=== PATIENT | male | born 1980 | race Caucasian/White ===

== ENCOUNTER → 2017-12-13 | Outpatient (CLI) | payer BC ==
--- NOTE | 2017-12-13 10:27 | Diagnostic Imaging Report ---
INDICATION: Testicular pain. The right testicle measures 4.1 x 3.1 x 3.6 cm and the left testicle measures 3.4 x 3.0 x 3.5 cm. Both testes demonstrate a homogeneous echotexture. No discrete mass is seen. There is blood flow to both testes. No significant hydrocele is seen. Epididymides are unremarkable. IMPRESSION: Unremarkable scrotal ultrasound. There is no evidence of testicular mass or vascular compromise. Dictated by: Dictated on workstation # [id number]
== END ==
LOC: RAD 08:44
PROVIDERS: ATTEND Nurse Practitioner Family
DX: N50.811 Right testicular pain (principal); N50.812 Left testicular pain
CPT/HCPCS: 76870

== ENCOUNTER → 2019-06-29 | Outpatient (CLI) | payer OTHER | LOC: CARD 12:57 | PROVIDERS: ATTEND Nurse Practitioner Family | DX: R00.2 Palpitations (principal) | CPT/HCPCS: 36415; 84484; 93005 ==

== ENCOUNTER 2019-07-11 04:59 | Emergency (ER) | payer OTHER ==
[~2019-07-11] VITALS: Ht 190.5 cm; Wt 137.5 kg
--- NOTE | 2019-07-11 05:33 | ED Trauma-Multisystem ---
General Stated Complaint: FALL,LOWER BACK PAIN Activation Level: Level 1 Source of Information: Patient, EMS Exam Limitations: Intoxication History of Present Illness Date Seen by Provider: Jul 11, 2019 Time Seen by Provider: 05:01 Initial Comments PT ARRIVES VIA EMS + CERVICAL COLLAR AND BACK BOARD IN PLACE PT IS INTOXICATED--STATES HE HAS HAD "4 DRINKS" TONIGHT, AND "1 XANAX" PT FELL OVER THE RAILING OF A [place], AND FELL 20 FEET. THIS WAS NOT WITNESSED, AND IS UNKNOWN HOW LONG PT HAS LAID ON THE GROUND OUTSIDE, BUT IS VERY COLD OUTSIDE--32 DEGREES, MINUS [place] AND IS VERY WET OUTSIDE. PT WEARING SOCKS, A VERY THIN "LEGGING" FOR PANTS, AND A VERY THIN, PERFORATED, SLEEVELESS SHIRT --CLOTHING IS VERY WET PT DENIES LOSS OF CONSCIOUSNESS, BUT AGAIN WAS NOT WITNESSED BY ANYONE C/O SEVERE PAIN TO LOW BACK AND RIGHT BUTTOCK/POSTERIOR HIP AREA. STATES HIS "WHOLE RIGHT LEG IS NUMB" BUT PT IS ABLE TO MOVE HIS RIGHT LEG. DENIES NECK PAIN DENIES HEADACHE DENIES DIZZINESS DENIES VISION CHANGES DENIES NAUSEA/VOMITING DENIES CHEST OR ABDOMINAL PAIN LEVEL 1 TRAUMA ACTIVATION DONE JUST PRIOR TO PT'S ARRIVAL 05--DIANE CONTACTED BY [employer] AND INFORMED OF LEVEL 1 TRAUMA ACTIVATION 0524--DR. NG CONTACTED BY [employer], AND INFORMED OF LEVEL 1 TRAUMA ACTIVATION . PCP: DR. GAUTAM Allergies and Home Medications Allergies Coded Allergies: No Known Drug Allergies (Unverified , 07/11/19) Patient Home Medication List Home Medication List Reviewed: Yes Review of Systems Review of Systems Constitutional: no symptoms reported; No dizziness Eyes: No Symptoms Reported; Denies Blurred Vision Ears: No Symptoms Reported Nose: No Symptoms Reported Mouth: No Symptoms Reported Throat: No Symptoms to Report Respiratory: no symptoms reported; No short of breath Cardiovascular: No Symptoms Reported; Denies Chest Pain Gastrointestinal: no symptoms reported; No abdominal pain, No nausea, No vomiting Genitourinary: no symptoms reported Musculoskeletal: see HPI, back pain Skin: no symptoms reported Psychiatric/Neurological: See HPI, Numbness, Tingling Past Hniyxxi-Daqhjc-Dkgxgo Hx Patient Social History Alcohol Use: Regular Use ("10 DRINKS A WEEK" ) Recreational Drug Use: Yes (THC) Drug of Choice: THC Smoking Status: Current Everyday Smoker (1 PPD) Type Used: Cigarettes (1 PPD) Recent Foreign Travel: No Contact w/Someone Who Travel: No Past Medical History Surgeries: Yes Vasectomy Respiratory: No Cardiac: Yes Hypertension Neurological: No Genitourinary: No Gastrointestinal: No Musculoskeletal: No Endocrine: Yes (MORBID OBESITY) HEENT: No Cancer: No Psychosocial: Yes Depression Physical Exam Height, Weight, BMI Height: '" Weight: lbs. oz. kg; BMI Method: General Appearance: No Apparent Distress, Obese (MORBIDLY OBESE), Other (REEKS OF ETOH--CAN SMELL THE ALCOHOL FROM OUTSIDE THE DOORWAY. SPEECH IS SLURRED) Head: No Evidence of Injury Eyes: Bilateral Eye Normal Inspection, Bilateral Eye PERRL, Bilateral Eye EOMI Ears, Nose, Throat: Hearing Grossly Normal, No Evidence of ENT Injury, No Dental Injury; No Clear Fluid (Ears), No Clear Fluid (Nose), No Hemotympanum, No Midface Instability, No Dental Injury Neck: Other (IN CERVICAL COLLAR) Cardiovascular: Regular Rate, Rhythm, No Edema, No JVD, No Murmur, Normal Peripheral Pulses Respiratory: Chest Non Tender, Normal Breath Sounds, No Accessory Muscle Use, No Respiratory Distress Gastrointestinal: Non Tender, Soft Rectal: Normal Rectal Tone Genital/Rectal: Other (NORMAL EXTERNAL GENITALIA. NO EXTERNAL EVIDENCE OF TRAUMA TO AREA. NO BLOOD AT MEATUS. ) Back: No CVA Tenderness, Vertebral Tenderness, Other (DIFFUSE LOWER LUMBAR TENDERNESS, RIGHT POSTERIOR ILIAC CREST, RIGHT BUTTOCK AND RIGHT HIP TENDERNESS. ) Extremity: Normal Range of Motion, Non Tender, No Calf Tenderness, No Pedal Edema, Slow Capillary Refill (VERY SLOW, FEET AND HANDS ARE EXTREMELY COLD. ), Other (NO EVIDENCE OF VICENTE BITE AT THIS TIME. ) Neurologic/Psychiatric: Alert, Oriented x3, No Motor/Sensory Deficits, regional production manager II- XII Norm as Tested, Other (PT DOES HAVE SENSATION TO BOTH FEET AND DISTAL MOTOR IS INTACT. ) Skin: Normal Color, Other (EXTREMELY COLD) [place] Coma Score Best Eye Response (Beny): (4) Open Spontaneously Best Verbal Response (Beny): (5) Oriented Best Motor Response ([place]iley [place]): (6) Obeys Commands Wiley [place] Total: 15 Focused Exam Lactate Level 07/11/19 05:12: Lactic Acid Level 3.49*H 07/11/19 07:13: Lactic Acid Level 3.01*H Lactic Acid Level Laboratory Tests Test 07/11/19 05:12 07/11/19 07:13 Lactic Acid Level 3.49 MMOL/L (0.50-2.00) *H 3.01 MMOL/L (0.50-2.00) *H Progress/Results/Core Measures Results/Orders Lab Results Laboratory Tests Test 07/11/19 05:12 07/11/19 07:13 Range/Units White Blood Count 24.2 H 4.3-11.0 10^3/uL Red Blood Count 4.64 4.35-5.85 10^6/uL Hemoglobin 13.2 L 13.3-17.7 G/DL Hematocrit 41 40-54 % Mean Corpuscular Volume 87 80-99 FL Mean Corpuscular Hemoglobin 28 25-34 PG Mean Corpuscular Hemoglobin Concent 33 32-36 G/DL Red Cell Distribution Width 13.6 10.0-14.5 % Platelet Count 288 130-400 10^3/uL Mean Platelet Volume 10.0 7.4-10.4 FL Prothrombin Time 13.4 12.2-14.7 SEC INR Comment 1.0 0.8-1.4 Activated Partial Thromboplast Time 25 24-35 SEC Fibrinogen 463 221-496 MG/DL D-Dimer 1.16 H 0.00-0.49 UG/ML Sodium Level 139 135-145 MMOL/L Potassium Level 4.3 3.6-5.0 MMOL/L Chloride Level 102 98-107 MMOL/L Carbon Dioxide Level 19 L 21-32 MMOL/L Anion Gap 18 H 5-14 MMOL/L Blood Urea Nitrogen 21 H 7-18 MG/DL Creatinine 1.52 H 0.60-1.30 MG/DL Estimat Glomerular Filtration Rate 51 BUN/Creatinine Ratio 14 Glucose Level 169 H 70-105 MG/DL Lactic Acid Level 3.49 *H 3.01 *H 0.50-2.00 MMOL/L Calcium Level 9.2 8.5-10.1 MG/DL Phosphorus Level 3.4 2.3-4.7 MG/DL Magnesium Level 1.9 1.6-2.4 MG/DL Total Bilirubin 0.2 0.1-1.0 MG/DL Direct Bilirubin 0.1 0.0-0.3 MG/DL Indirect Bilirubin 0.1 MG/DL Aspartate Amino Transf (AST/SGOT) 85 H 5-34 U/L Alanine Aminotransferase (ALT/SGPT) 93 H 0-55 U/L Alkaline Phosphatase 69 40-136 U/L Total Creatine Kinase 716 H 30-200 U/L Total Protein 7.3 6.4-8.2 GM/DL Albumin 4.7 H 3.2-4.5 GM/DL Serum Alcohol 232 H <10 MG/DL My Orders Orders - MARTITA PALOMO DO Ct Head/Face/Cervical Wo (07/11/19 ) Ct Thoracic/Lumbar Spine Wo (07/11/19 ) Ct Chest/Abdomen/Pelvis W (07/11/19 ) Chest 1 View, Ap/Pa Only (07/11/19 ) Pelvis (07/11/19 ) Cbc No Diff (07/11/19 05:31) Fibrin Degradation Products (07/11/19 05:31) Fibrinogen (07/11/19 05:31) Protime With Inr (07/11/19 05:31) Partial Thromboplastin Time (07/11/19 05:31) Drug Screen Stat (Urine) (07/11/19 05:31) Urinalysis (07/11/19 05:31) Alcohol (07/11/19 05:31) Basic Metabolic Panel (07/11/19 05:31) Creatine Kinase (07/11/19 05:31) Liver Panel (07/11/19 05:31) Magnesium (07/11/19 05:31) Phosphorus (07/11/19 05:31) Lactic Acid Analyzer (07/11/19 05:31) Red Cells Leukocytes Reduced (07/11/19 05:31) Type And Screen (07/11/19 05:31) Fentanyl Injection (Sublimaze Injection (07/11/19 06:16) Iohexol Injection (Omnipaque 350 Mg/Ml 1 (07/11/19 06:30) Received Contrast (Hold Metformin- Contr (07/11/19 06:30) Ns (Ivpb) (Sodium Chloride 0.9% Ivpb Bag (07/11/19 06:30) Ns Iv 1000 Ml (Sodium Chloride 0.9%) (07/11/19 06:27) Lactated Ringers (Lr 1000 Ml Iv Solution (07/11/19 06:27) Fentanyl Injection (Sublimaze Injection (07/11/19 06:27) Fentanyl Injection (Sublimaze Injection (07/11/19 06:45) Fentanyl Injection (Sublimaze Injection (07/11/19 07:30) Fentanyl Injection (Sublimaze Injection (07/11/19 08:15) Ed Iv/Invasive Line Start (07/11/19 08:19) Ns Iv 1000 Ml (Sodium Chloride 0.9%) (07/11/19 08:19) Lactated Ringers (Lr 1000 Ml Iv Solution (07/11/19 08:19) Medications Given in ED Current Medications Medications Dose Ordered Sig/Ken Route Start Time Stop Time Status Last Admin Dose Admin Fentanyl Citrate 100 mcg ONCE PRN IVP 07/11/19 07:30 07/11/19 07:25 100 MCG Fentanyl Citrate 100 mcg ONCE PRN IVP 07/11/19 08:15 07/11/19 08:24 100 MCG Fentanyl Citrate 100 mcg STK-MED ONCE .ROUTE 07/11/19 06:16 07/11/19 06:18 DC 07/11/19 06:29 50 MCG Lactated Ringer's 1,000 ml @ 0 mls/hr Q0M ONCE IV 07/11/19 08:19 07/11/19 08:21 DC 07/11/19 08:24 0 MLS/HR Sodium Chloride 1,000 ml @ 0 mls/hr Q0M ONCE IV 07/11/19 08:19 07/11/19 08:21 DC 07/11/19 08:25 0 MLS/HR Progress Progress Note : Progress Note RECTAL TEMP ON ARRIVAL IS 34.5 C=94.1 F IMMEDIATELY REMOVED ALL WET CLOTHING, PLACED WARM BLANKETS AND MELANIE HUGGER ON PT, AND GIVEN WARM IV FLUIDS TEMP IS UP WITH THESE MEASURES,AND PT HAS GOOD CAPILLARY REFILL IN ALL EXTREMITIES AND ALL ARE WARM AND PINK, AND HAS GOOD SENSATION AND TO ALL EXTREMITIES. NO EVIDENCE OF FROSTBITE INJURY. PT PLACED IN PELVIC BINDER IMMEDIATELY ON VIEWING PELVIS XRAY--PT STATES PAIN IS MUCH IMPROVED WITH THIS MEASURE. PT STATES NUMBNESS AND TINGLING IN HIS RIGHT LEG IS MUCH LESS ALSO. DISTAL MOTOR/SENSORY/VASCULAR IS INTACT. NO DETERIORATION IN PT'S CONDITION DURING ER STAY VITALS REMAINED STABLE PAIN CONTROLLED Initial ECG Impression Date: Jul 11, 2019 Initial ECG Impression Time: 07:17 Initial ECG Rate: 81 Initial ECG Rhythm: Normal Sinus Initial ECG Impression: Normal Initial ECG Comparisson: No Previous ECG Available Diagnostic Imaging Comments CXR--NO ACUTE PROCESS, PENDING RADIOLOGIST REVIEW PELVIS XRAY--OPEN BOOK PELVIC FRACTURE, PENDING RADIOLOGIST REVIEW CT HEAD/MAXILLOFACIALS/CERVICAL SPINE--NO ACUTE PROCESS,PER [facility] VIA FAX AT 0635 CT THORACIC/LUMBAR SPINE--RIGHT TRANSVERSE PROCESS FRACTURES OF L1-L5, WITH MARKED DIASTASES OF RIGHT SI JOINT OF 17 MM--PER [facility] VIA FAX [place] 0630 CT CHEST/ABDOMEN/PELVIS---MILD CARDIOMEGALY WITHOUT SIGNIFICANT PERICARDIAL EFFUSION, NO ACUTE PULMONARY OR OSSEOUS INJURY OF CHEST; HEPATOMEGALY AND DIFFUSE HEPATIC STEATOSIS, NO EVIDENCE OF SOLID OR HOLLOW ORGAN INJURY OR MESENTERIC INJURY. RIGHT TRANSVERSE PROCESS FRACTURES OF L1-L5. MARKED DIASTASES OF RIGHT SI JOINT, WITH PUBIC DIASTASES OF 2.8 CM. EXTRAPERITONEAL HEMORRHAGE ON THE RIGHT, ADJACENT TO AND ANTERIOR TO RIGHT PSOAS MUSCLE AND ALONG THE COMMON AND EXTERNAL ILIAC VESSELS ON RIGHT. ANTERIOR BLADDER EXTENDS INTO THE DIASTASES DEFECT, WITH INTACT URINARY BLADDER. NO PNEUMOPERITONEUM. NO INTRAPERITONEAL BLOOD. PATCHY SUBCUTANEOUS SOFT TISSUE CONTUSIONS ANTERIOR ABDOMINAL WALL ON RIGHT--PER [facility] VIA FAX AT 0638 Reviewed: Reviewed by Me Critical Care Note Critical Care Start Time: 05:01 Stop Time: 06:30 Departure Communication (Admissions) 0625--[facility] NOT AVAILABLE FOR AIR TRANSPORT 0627--[facility] NOT AVAILABLE FOR AIR TRANSPORT 0630--[facility] NOT AVAILABLE FOR TRANSPORT 0623--CALLED IZABEL[facility]HONG ER PHYSICIAN 0629--SPOKE WITH DR. RAIN, ER PHYSICIAN, INJURIES ARE BEYOND THEIR CAPABILITY, ADVISES TRANSFER TO HIGHER LEVEL OF CARE. 0630--CALLED NOAH. IZABELA SAAVEDRA, TRAUMA SURGEON. 0647--[facility] CALLED BACK, THEY WILL AUTO-ACCEPT FOR DR. SAAVEDRA AT THIS TIME, AND WILL HAVE HER CALL BACK WHEN SHE IS AVAILABLE. PT HAS BEEN GIVEN A GHOST BED NUMBER [id number]--SPOKE WITH DR. SAAVEDRA, ACCEPTS PT FOR DIRECT ADMIT TO ICU. INFORMED HER OF OUR TRANSPORTATION ISSUES AND WILL CONTACT HER SOON TRANSPORT IS SECURED, AND GIVE ETA TO THEIR FACILITY. 0747--[facility] WILL BE HERE IN 45 MINUTES TO TRANSPORT PT 0837--[facility] HERE FOR TRANSPORT. Impression Primary Impression: Fall from, out of or through balcony, initial encounter Additional Impressions: FALL FROM 20 FEET OPEN BOOK PELVIC FRACTURE TRANSVERSE PROCESS FRACTURES RIGHT L1-L5 Hypothermia Alcohol intoxication Disposition: 02 XFER SHT-TRM HOSP Condition: Stable Transfer Transfer Reason: Exceeds level of care Transfer Facility: Method of Transfer: Air ([facility]) Departure-Patient Inst. Referrals: KELLY GAUTAM MD (PCP/Family) Primary Care Physician MARTITA PALOMO DO Jul 11, 2019 05:33 POS
[2019-07-11 05:37] LABS: HEMOGLOBIN 13.2 G/DL (13.3-17.7); RED CELL DISTRIBUTION WIDTH 13.6 % (10.0-14.5); WHITE BLOOD COUNT 24.2 10^3/uL (4.3-11.0)
[2019-07-11 05:54] LABS: ALBUMIN 4.7 GM/DL (3.2-4.5); BILIRUBIN,DIRECT 0.1 MG/DL (0.0-0.3); BILIRUBIN,INDIRECT 0.1 MG/DL; BILIRUBIN,TOTAL 0.2 MG/DL (0.1-1.0); CALCIUM 9.2 MG/DL (8.5-10.1); CREATININE SERUM 1.52 MG/DL (0.60-1.30); MAGNESIUM 1.9 MG/DL (1.6-2.4); PHOSPHORUS 3.4 MG/DL (2.3-4.7); POTASSIUM 4.3 MMOL/L (3.6-5.0); TOTAL PROTEIN 7.3 GM/DL (6.4-8.2)
[2019-07-11 06:09] LABS: FIBRIN DEGRADATION PRODUCTS 1.16 UG/ML (0.00-0.49); PROTHROMBIN TIME PATIENT 13.4 SEC (12.2-14.7)
[2019-07-11] MEDS ORDERED: fentaNYL INJECTION 100 MCG/2 ML AMP ONE (06:16)
[2019-07-11] MEDS ORDERED: fentaNYL INJECTION 100 MCG/2 ML AMP IVP STA (06:27)
[2019-07-11] MEDS ORDERED: LACTATED RINGERS 1,000 ML IV STA (06:27)
[2019-07-11] MEDS ORDERED: NS IV 1000 ML 1,000 ML IV STA (06:27)
[2019-07-11] MEDS ORDERED: HOLD METFORMIN - RECEIVED CONTRAST 20 ML VIAL IV SCH (06:30)
[2019-07-11] MEDS ORDERED: IOHEXOL 350 MG/ML 100 ML (OMNIPAQUE 350) VIAL IV ONE (06:30)
[2019-07-11] MEDS ORDERED: NS 100 ML (IVPB) BAG IV ONE (06:30)
--- NOTE | 2019-07-11 06:34 | Diagnostic Imaging Report ---
PROCEDURE: CT head, face, and cervical spine without contrast. TECHNIQUE: Multiple contiguous axial images were obtained through the head, neck, and facial bones without the use of intravenous contrast. Sagittal and coronal reformations through the cervical spine and facial bones were also performed. Auto Exposure Controls were utilized during the CT exam to meet ALARA standards for radiation dose reduction. Indication: Head and neck pain after fall. Comparison: None. Discussion: Head: No intracranial hemorrhage, mass, midline shift, or hydrocephalus. The ventricles and sulci are normal size and configuration for age. The visualized orbits, paranasal sinuses, mastoid air cells, and calvarium are unremarkable. No facial or nasal bone fracture identified. Facial soft tissues appear within normal limits. Cervical spine: Moderate degenerative disc disease noted diffusely throughout the cervical spine. Mild facet arthropathy. No fracture or subluxation. Alignment is anatomic. The adjacent soft tissues are unremarkable. Impression: 1. No acute abnormality identified within the head or neck. Dictated by: Dictated on workstation # [id number]
--- NOTE | 2019-07-11 06:44 | Diagnostic Imaging Report ---
PROCEDURE: CT thoracic and lumbar spine without contrast. TECHNIQUE: Multiple contiguous axial images were obtained through the thoracic and lumbar spine without the use of intravenous contrast. Sagittal and coronal reformations were then performed. Indication: Fall with mid to low back pain. Comparison: None. Discussion: The trachea appears markedly narrowed which is of uncertain etiology, recommend clinical correlation. There is no discrete mass or surrounding hematoma identified. The remainder of the adjacent soft tissues are unremarkable. There is marked widening of the right sacroiliac joint which is likely due to dislocation. There are nondisplaced fractures of the right L1, L2, L3, L4, and L5 transverse processes. No compression fracture identified. Overall alignment is anatomic. The intervertebral disc spaces are well-maintained. Impression: 1. Nondisplaced fractures of the L1-L5 right transverse processes. 2. Marked widening of the right sacroiliac joint. 3. Marked narrowing of the trachea which is of uncertain etiology or clinical significance. Dictated by: Dictated on workstation # [id number]
[2019-07-11] MEDS ORDERED: fentaNYL INJECTION 100 MCG/2 ML AMP IVP PRN ×3 (06:45→08:15)
--- NOTE | 2019-07-11 06:45 | Diagnostic Imaging Report ---
EXAMINATION: AP pelvis INDICATION: Fall. Back and pelvic pain. FINDINGS: There is marked abnormal diastasis demonstrated about the pubic symphysis and also diastasis of the right SI joint. No significant diastasis of the left SI joint evident. No right-sided lower lumbar transverse process fractures. There is no hip dislocation or proximal femoral fracture. The urinary bladder is displaced to the right likely related to a right pelvic sidewall hematoma. IMPRESSION: 1. Diastasis of the pubic symphysis and right SI joint. There are right L4 and L5 transverse process fractures. There is no hip dislocation or proximal femoral fracture. The urinary bladder is displaced to the right suggesting right sided pelvic sidewall hematoma. Dictated by: Dictated on workstation # [id number]
--- NOTE | 2019-07-11 07:14 | Diagnostic Imaging Report ---
PROCEDURE: CT chest, abdomen, and pelvis with contrast. TECHNIQUE: Multiple contiguous axial images were obtained through the chest, abdomen, and pelvis after the administration of intravenous contrast. Auto Exposure Controls were utilized during the CT exam to meet ALARA standards for radiation dose reduction. INDICATION: Fall. Back and pelvic pain. FINDINGS: The supraclavicular soft tissues appear unremarkable. The lungs demonstrate no evidence of focal pulmonary infiltrate or consolidation. There is no pleural collection or evidence of a pneumothorax. Thoracic aorta normal in caliber. There is no mediastinal hematoma. There is no pericardial collection. No rib fractures are evident. There is no fracture of the scapula or visualized clavicles. The sternum appears intact. There is no glenohumeral joint dislocation. The liver demonstrates no evidence of a focal intrahepatic abnormality. Gallbladder nondistended without radiodense gallstone. Portal veins patent. Spleen unremarkable without laceration. There is no adrenal hematoma. Kidneys enhance normally and are not obstructed. The pancreas is unremarkable. There are no findings of bowel obstruction. The appendix is normal. There is no abnormal bowel thickening. Within the pelvis, there is marked diastases demonstrated of the pubic symphysis. The inferior aspect of the urinary bladder appears to extend into this diastased space. There is also marked diastases demonstrated of the right sacroiliac joint. There is no definitive sacral fracture. The left SI joint appears intact. There is no evidence of hip dislocation though the left femur appears to be externally rotated. There is artifact resulting in artifactual appearance of cortical displacement of the femoral shafts. There is some minimal stranding demonstrated within the extraperitoneal aspect of the right pelvic sidewall without evidence of active contrast extravasation. The spine demonstrates displaced right-sided L1-L5 transverse process fractures. No vertebral body fracture evident. There is no widening of the facet joints or disc spaces. IMPRESSION: 1. Marked diastases of the pubic symphysis and of the right SI joint. 2. Small degree of apparent blood products in the extraperitoneal space along the right pelvic sidewall. 3. The anterior and inferior aspect of the urinary bladder appears to extend into the diastased pubic symphysis. There is no adjacent fluid. 4. No current active contrast extravasation evident. 5. Right L1-L5 transverse process fractures. 6. I agree with the preliminary [facility] report. Dictated by: Dictated on workstation # [id number]
--- NOTE | 2019-07-11 07:14 | Diagnostic Imaging Report ---
INDICATION: Fall. Back pain. FINDINGS: Lungs demonstrate no focal infiltrate or consolidation. There are no findings of an effusion or pleural collection. There is no pneumothorax. Heart size accentuated by AP technique and body habitus. Central pulmonary vascularity appears appropriate. No fracture is delineated. IMPRESSION: 1. No radiographic evidence of an acute cardiopulmonary process. 2. No fracture evident. Dictated by: Dictated on workstation # [id number]
[2019-07-11] MEDS ORDERED: ALPR0.5T7 (07:28)
[2019-07-11] MEDS ORDERED: LISI-552 (07:28)
[2019-07-11] MEDS ORDERED: ESCI20TA45 (07:28)
[2019-07-11] MEDS ORDERED: NS IV 1000 ML 1,000 ML IV ONE (08:19)
[2019-07-11] MEDS ORDERED: LACTATED RINGERS 1,000 ML IV ONE (08:19)
[2019-07-11 08:55] VITALS: BP 114/52
== END 2019-07-11 08:55 | disposition short-term general hospital (02) ==
LOC: EDUNIT# 04:59 → ER 05:02
DX: S32.010A Wedge compression fracture of first lumbar vertebra, initial encounter for closed fracture (principal); S32.020A Wedge compression fracture of second lumbar vertebra, initial encounter for closed fracture; S32.030A Wedge compression fracture of third lumbar vertebra, initial encounter for closed fracture; S32.040A Wedge compression fracture of fourth lumbar vertebra, initial encounter for closed fracture; S32.050A Wedge compression fracture of fifth lumbar vertebra, initial encounter for closed fracture; S32 Fracture of lumbar spine and pelvis; R68.0 Hypothermia, not associated with low environmental temperature; F10.129 Alcohol abuse with intoxication, unspecified; I10 Essential (primary) hypertension; F32.9 Major depressive disorder, single episode, unspecified; E66.01 Morbid (severe) obesity due to excess calories; R40.2142 Coma scale, eyes open, spontaneous, at arrival to emergency department; R40.2252 Coma scale, best verbal response, oriented, at arrival to emergency department; R40.2362 Coma scale, best motor response, obeys commands, at arrival to emergency department; F17.210 Nicotine dependence, cigarettes, uncomplicated; Z68.37 Body mass index [BMI] 37.0-37.9, adult; W13.0XXA Fall from, out of or through balcony, initial encounter
CPT/HCPCS: 36415; 70450; 70486; 71045; 71260; 72125; 72128; 72131; 72170; 74177; 80048; 80076; 80320; 82550; 83605; 83735; 84100; 85027; 85379; 85384; 85610; 85730; 86850; 86900; 86901; 93005; 96361; 96374; 96376

== ENCOUNTER → 2019-09-22 | Outpatient (CLI) | payer OTHER ==
[~2019-09-22] MED LIST: ALPR0.5T7; ESCI20TA45; LISI-552
[2019-09-22 12:16] LABS: ALANINE AMINOTRANSFERASE 20 U/L (0-55); ALBUMIN 4.2 GM/DL (3.2-4.5); ALKALINE PHOSPHATASE 98 U/L (40-136); BILIRUBIN,TOTAL 0.2 MG/DL (0.1-1.0); BUN/CREATININE RATIO 16; CALCIUM 9.6 MG/DL (8.5-10.1); CARBON DIOXIDE 24 MMOL/L (21-32); CHLORIDE 103 MMOL/L (98-107); CREATININE SERUM 0.87 MG/DL (0.60-1.30); GFR ESTIMATED > 60; GLUCOSE 98 MG/DL (70-105); POTASSIUM 4.1 MMOL/L (3.6-5.0); SODIUM 138 MMOL/L (135-145); TOTAL PROTEIN 7.4 GM/DL (6.4-8.2)
== END ==
LOC: LAB 11:42
PROVIDERS: ATTEND Nurse Practitioner Family
DX: N18.9 Chronic kidney disease, unspecified (principal)
CPT/HCPCS: 36415; 80053

== ENCOUNTER → 2022-11-05 | Outpatient (CLI) | payer BC, OTHER ==
[~2022-11-05] MED LIST changes: +ESCI20TA39; -ESCI20TA45; -LISI-552; +LISI20TA26
== END ==
LOC: CARD 15:00
PROVIDERS: ATTEND Nurse Practitioner Family
DX: I11.9 Hypertensive heart disease without heart failure (principal); I35.0 Nonrheumatic aortic (valve) stenosis; R07.89 Other chest pain
CPT/HCPCS: 93306

== ENCOUNTER 2022-11-13 07:03 | Day surgery (SDC) | payer BC ==
[~2022-11-13] VITALS: Ht 188 cm; Wt 137.5 kg
[2022-11-13] VITALS (9 sets, daily range): BP systolic 134–154; BP diastolic 56–80
[2022-11-13] MEDS ORDERED: NS IV 1000 ML 1,000 ML ONE (07:14)
[2022-11-13] MEDS ORDERED: LIDOCAINE 1% INJ 20 ML VIAL ONE (07:14)
[2022-11-13] MEDS ORDERED: HEParin (CATH LAB) 2,000 ML IV ONE (07:14)
[2022-11-13] MEDS ORDERED: NS IV 1000 ML 1,000 ML IV SCH ×2 (07:15→12:15)
[2022-11-13 07:45] LABS: HEMATOCRIT 38 % (40-54); HEMOGLOBIN 12.5 g/dL (13.3-17.7); MEAN CORPUSCULAR HEMOGLOBIN 28 pg (25-34); MEAN CORPUSCULAR HGB CONC 33 g/dL (32-36); MEAN CORPUSCULAR VOLUME 86 fL (80-99); MEAN PLATELET VOLUME 10.1 fL (9.0-12.2); PLATELET COUNT 195 10^3/uL (130-400); WHITE BLOOD COUNT 7.2 10^3/uL (4.3-11.0)
[2022-11-13] MEDS ORDERED: ATOR20TA66 PO (07:46)
[2022-11-13] MEDS ORDERED: SERT-413 PO (07:46)
[2022-11-13] MEDS ORDERED: SERT-414 PO (07:46)
[2022-11-13] MEDS ORDERED: LISI20TA26 PO (07:46)
[2022-11-13] MEDS ORDERED: POTA99CA PO (07:46)
[2022-11-13] MEDS ORDERED: BACL10TA PO (07:46)
[2022-11-13] MEDS ORDERED: IBUP-1780 PO (07:46)
[2022-11-13] MEDS ORDERED: DIAZ10TA3 PO (07:48)
[2022-11-13 08:10] LABS: ALBUMIN 4.2 GM/DL (3.2-4.5); BILIRUBIN,TOTAL 0.4 MG/DL (0.1-1.0); CALCIUM 10.7 MG/DL (8.5-10.1); CREATININE SERUM 0.96 MG/DL (0.60-1.30); POTASSIUM 4.1 MMOL/L (3.6-5.0); TOTAL PROTEIN 7.2 GM/DL (6.4-8.2)
[2022-11-13 08:20] LABS: PROTHROMBIN TIME PATIENT 13.3 SEC (12.2-14.7)
[2022-11-13] MEDS ORDERED: fentaNYL INJ 100 MCG/2 ML AMP ONE (10:18)
[2022-11-13] MEDS ORDERED: MIDAZOLAM 5 MG/5 ML (VERSED) VIAL ONE (10:18)
--- NOTE | 2022-11-13 11:36 | Cardiac Procedure Note-CS/ASA ---
Pre-Procedure Note Pre-Op Procedure Note Date of Available H&P: Nov 08, 2022 Date H&P Reviewed: Nov 13, 2022 Time H&P Reviewed: 10:00 History & Physical: H&P Reviewed, No changes noted Moderate Sedation PreProcedure ASA Score 3 Airway Lungs Heart ASA score ASA 1: a normal healthy patient ASA 2: a patient with a mild systemic disease (mid diabetes, controlled hypertension, obesity ASA 3: a patient with a severe systemic disease that limits activity (angina, COPD, prior Myocardial infarction) ASA 4: a patient with an incapacitating disease that is a constant threat to life (CHF, renal failure) ASA 5: a moribund patient not expected to survive 24 hrs. (ruptured aneurysm) ASA 6: a declared brain- patient whose organs are being harvested. For emergent operations, add the letter E after the classification Mallampati Classification Grade 3 Sedation Plan Analgesia, Amnesia, Plan communicated to team members The patient is an appropriate candidate to undergo the planned procedure, sedation, and anesthesia. The patient immediately re-assessed prior to indication. SHIELA BOJORQUEZ MD FACP FAC CCDS Nov 13, 2022 11:36
--- NOTE | 2022-11-13 11:58 | Cardiac Cath Report ---
CARDIAC CATHETERIZATION DATE OF PROCEDURE: 11/13/22 INDICATION: Aortic stenosis HISTORY: The patient is a 42 year old male diagnosed with severe on a recent echo ordered by his pcp. Informed consent obtained for complete heart cath PROCEDURES PERFORMED: 1. Complete Heart Cath PROCEDURE DESCRIPTION: After informed consent and in the fasting state, [facility] heart cath was performed through the R femoral vein using a 7F [place] Mitul catheter and left heart catheterization was performed through the R femoral artery utilizing a 5 [place] system by percutaneous approach. The 5F sheath was changed to 6F sheath after performing left ventricular catheterization and angiography. This allowed use of 6F diagnostic catheters that were less prone to buckling in the turbulent flow (due aortic stenosis) in the ascending aorta. Standard Yodit catheters were utilized for the diagnostic portion of the procedure. Aortic root angiography and selective R and L cor angiography were performed after left ventricular cath and angiography. At the end of the procedure, angiography of the R femoral artery was carried out through the sheat h. Mynx was used achieve arterial hemostasis and manual pressure to achieve venous hemostasis after sheath removal. The patient tolerated the procedure well HEMODYNAMICS PA: 67/34/47 PCWP mean: 30 RV: 65/17 RA MEAN: 15 LV: 194/39 AO: 139/82/105 (on pullback) CO (thermodilution): 6.83 CI (thermodilution): 2.65 PVR: 2.82 Wood units Mean aortic gradient on cath: 50.02 mmHg Valve area: 0.93 No step up seen on oxygen saturation measurement in various R heart LV ANGIOGRAPHY LVEF approx 50% AORTIC ROOT ANGIOGRAPHY Aortic valve leaflet calcification and diminished excursion Moderate to sever aortic regurgitation Moderate dilatation of the ascending aorga CORONARY ANGIOGRAPHY: Left main coronary artery: Ok Left anterior descending coronary artery: Ok Left circumflex coronary artery: 90% ostial stenosis of OM1 (distally located) and 80% stenosis in distal LCx Right coronary artery: Dominant, long 70% stenosis of the distal, posterolateral RCA where the vessel is of a relatively small caliber IMPRESSION: 1. Severe aortic stenosis and mod to severe aortic regurgitation 2. Moderate pulmonary hypertension 3. Elevated LVEDP and pulmonary wedge pressure 4. 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
[2022-11-13] MEDS ORDERED: PATIENT MAY USE OWN MEDS, ALL PO SCH (12:15)
[2022-11-13] MEDS ORDERED: FURO40TA4 PO (12:17)
[2022-11-13] MEDS ORDERED: POTA-177 PO (12:17)
[2022-11-13] MEDS ORDERED: ASPI-999 PO (12:17)
--- NOTE | 2022-11-13 12:17 | Discharge Inst-Cardiology ---
Discharge Inst-Cardiac Discharge Medications New Medications: Aspirin (Aspirin) 81 Mg Tab.chew 81 MG PO DAILY, #30 TAB 5 Refills Furosemide (Furosemide) 40 Mg Tablet 40 MG PO DAILY, #30 TAB 5 Refills Potassium Chloride (Potassium Chloride) 10 Meq Tab.er.prt 10 MEQ PO DAILY, #30 TAB 5 Refills Continued Medications: Atorvastatin Calcium (Atorvastatin Calcium) 20 Mg Tablet 20 MG PO DAILY, TAB Baclofen (Baclofen) 10 Mg Tablet 10 MG PO HS PRN for MUSCLE SPASMS, TAB Diazepam (Diazepam) 10 Mg Tablet 10 MG PO DAILY PRN for MUSCLE SPASMS, TAB Lisinopril (Lisinopril) 20 Mg Tablet 20 MG PO DAILY, TAB Sertraline HCl (Sertraline HCl) 50 Mg Tablet 50 MG PO DAILY, TAB TAKES WITH 100MG TO EQUAL 150MG Sertraline HCl (Sertraline HCl) 100 Mg Tablet 100 MG PO DAILY, TAB TAKES WITH 50MG TO EQUAL 150MG Discontinued Medications: Ibuprofen (Ibuprofen) 800 Mg Tablet 800 MG PO DAILY, TAB Potassium Citrate (Potassium) 99 Mg Capsule 99 MG PO DAILY, SHIELA ROSARIO MD FACP FAC CCDS Nov 13, 2022 12:17
--- NOTE | 2022-11-13 12:18 | Discharge Inst-Post CATH ---
Discharge Inst-CATH/EP Post Cardiac Cath/EP D/C Inst Follow Up/Plan F/u with Dr Jones next week ACTIVITY * Go Home directly and rest. * Limit activity of the leg (or wrist if it was used) for 7 days including aerobics, swimming, jogging, bicycling, etc. * Restrict stair-climbing for 7 days if possible, if not, climb up with your non -cath leg, then bring together on the same step. * Avoid lifting, pushing, pulling or excessive movement of the affected extr emity for 7 days. * Customary sexual activity may be resumed after 2 days-use caution not to use a position that strains or causes pain to the affected extremity. * No driving for 24 hours. * NO SMOKING. * Avoid straining for bowel movements for 7 days. * Gentle walking on level ground is allowed. * Returning to work will depend on the type of procedure and the results. Your doctor will discuss this with you. CALL YOUR DOCTOR FOR ANY OF THE FOLLOWING: *If bleeding from the puncture site occurs- Apply gentle pressure to site with clean cloth and call your doctor or EMS. * If a knot or lump forms under the skin, increases in size, or causes pain. * If bruising appears to be worsening or moving further down your leg instead of disappearing. * Temperature above 101 F. CARE OF YOUR GROIN INCISION; * Bruising or purple discoloration of the skin near the puncture site is common. * You may shower only, no bathtub bathing for 5 days. Be careful to avoid slipping as your leg may feel stiff. * If a closure device was used on your femoral artery, please see the attached guide regarding care of the device and your leg. * Leave dressing on FOR 24 hours. CARE OF YOUR WRIST INCISION; * Bruising or purple discoloration of the skin near the puncture site is common. * You may shower. * DO NOT submerge wrist. * Leave dressing on FOR 24 hours. SHIELA JONES MD [facility] Nov 13, 2022 12:18
== END 2022-11-13 15:15 | disposition home or self-care (01) ==
LOC: CATH 07:03 → SDC 12:12 → CATH 15:15
PROVIDERS: ATTEND Internal Medicine Cardiovascular Disease
DX: I35.0 Nonrheumatic aortic (valve) stenosis (principal); I35.1 Nonrheumatic aortic (valve) insufficiency; I27.20 Pulmonary hypertension, unspecified; I25.10 Atherosclerotic heart disease of native coronary artery without angina pectoris; I10 Essential (primary) hypertension; E78.2 Mixed hyperlipidemia; G89.29 Other chronic pain; M54.9 Dorsalgia, unspecified; F41.9 Anxiety disorder, unspecified; F32.A Depression, unspecified; Z87.891 Personal history of nicotine dependence; Z79.899 Other long term (current) drug therapy
CPT/HCPCS: 80053; 80061; 85027; 85610; 85730; 87081; 93005; 93460; 93567; C1760; C1894 ×3; 36415